=== PATIENT | female | born 1995 | race Asian ===

== ENCOUNTER → 2017-11-20 | Outpatient (CLI) | payer OTHER ==
[~2017-11-20] MED LIST: Z.0.NO CURRENT MEDS
== END ==
LOC: HPND 13:57
PROVIDERS: ATTEND Family Medicine
DX: Z36.3 Encounter for antenatal screening for malformations (principal); O09.32 Supervision of pregnancy with insufficient antenatal care, second trimester
CPT/HCPCS: 76805

== ENCOUNTER 2018-02-28 10:15 | Inpatient (IN) ==
[2018-02-28] MEDS ORDERED: Naloxone Inj 0.4 MG/ML Vial IV.PUSH PRN ×2 (10:57→18:20)
[2018-02-28] MEDS ORDERED: Sod Chloride 0.9% Inj 1,000 ML IV.CONT PRN (10:57)
[2018-02-28] MEDS ORDERED: Sodium Chlor 0.9% Inj 500 ML IV.SIG PRN (10:57)
[2018-02-28] MEDS ORDERED: Oxytocin 30 Units/500ml Premix 30 UNITS/500 ML BAG IV.SIG ONE (10:57)
[2018-02-28] MEDS ORDERED: fentaNYL Citrate Inj 100 MCG/2 ML Ampul IV.PUSH PRN ×2 (10:57)
[2018-02-28] MEDS ORDERED: Oxytocin 30 Units/500ml Premix 30 UNITS/500 ML BAG IV.SIG PRN (10:57)
[2018-02-28] MEDS ORDERED: Citric Acid/Sodium Citrate Liq 30 ML UDC PO SCH (11:00)
--- NOTE | 2018-02-28 11:17 | ED ---
History of Present Illness Primary Care Physician: Mirella Navarro MD History of Present Illness: Ms. Villeda is a at 40/1. Loss of fluid at 930 this am Weeks Gestation:: 40 - Inpatient Certification I certify that the inpatient services were ordered in accordance with Medicare regulations governing the order. This includes certification that hospital inpatient services are reasonable and necessary and in the case of services not specified as inpatient-only under 42 CFR 419.22(n), that they are appropriately provided as inpatient services in accordance to with the 2-midnight benchmark under 43 CFR 412.3(e) Estimated Total Length of Stay (Days): 2 Plans for Post Hospital Care: Home PMFSH - Travel History Recent Travel in the [place] Within the Last 8 Weeks: No Recent Travel Out of the Country Within the Last 8 Weeks: No Medications and Allergies Active Medications: Active Medications Citric Acid/Sodium Citrate (Sodium Citrate/Citric Acid Liq) 30 ml PO BLOCKER HAND [facility] Stop: 03/04/18 10:59 Fentanyl Citrate (Fentanyl Inj) 100 mcg IV.PUSH Q1H PRN PRN Reason: PAIN SCALE 6 TO 10 Fentanyl Citrate (Fentanyl Inj) 50 mcg IV.PUSH Q1H PRN PRN Reason: Pain Scale 3 - 5 Lactated Ringer's (Lr 1000 Ml Inj) 1,000 mls @ 125 mls/hr IV.CONT .Q8H [facility] Lactated Ringer's (Lr 1000 Ml Inj) 1,000 mls @ 3,000 mls/hr IV.SIG UNSCH PRN PRN Reason: compromise or epidural Sodium Chloride (Ns Inj) 500 mls @ 1,000 mls/hr IV.SIG UNSCH PRN PRN Reason: SEE LABEL COMMENTS Sodium Chloride (Ns Inj) 1,000 mls @ 100 mls/hr IV.CONT .Q10H PRN PRN Reason: SEE LABEL COMMENTS Oxytocin (Pitocin 30 Units/Ns 500 Ml Premix) 30 units in 500 mls @ 999 mls/hr IV.SIG BOLUS ONE Stop: 02/28/18 11:27 Oxytocin (Pitocin 30 Units/Ns 500 Ml Premix) 30 units in 500 mls @ 2 mls/hr IV.SIG TITRATE PRN; Protocol PRN Reason: For induction of labor Lidocaine HCl (Xylocaine 1% Inj) 0.1 ml I-DERMAL PRN PRN PRN Reason: For IV start Stop: 03/03/18 10:56 Lidocaine HCl (Xylocaine 1% Inj) 10 ml INFILTRATN PRN PRN PRN Reason: For episiotomy repair Stop: 03/02/18 10:56 Metoclopramide HCl (Reglan Inj) 10 mg IV.PUSH ONCE PRN; Protocol PRN Reason: NAUSEA OR VOMITING Mineral Oil (Muri-Lube Oil) 10 ml TOPICAL PRN PRN PRN Reason: PRN perineal massage Naloxone HCl (Narcan Inj) 0.1 mg IV.PUSH Q2M PRN PRN Reason: for opiate reversal Ondansetron HCl (Zofran Inj) 4 mg IV.PUSH Q6H PRN PRN Reason: NAUSEA OR VOMITING Allergies Allergy/AdvReac Type Severity Reaction Status Date / Time ibuprofen Allergy Severe SOB/HIVES Verified 02/28/18 10:51 Home Medications Medication Instructions Recorded Confirmed Type PNV #[id number] [id number] 1 tab PO DAILY 02/28/18 02/28/18 History ferrous sulfate [Iron (ferrous 325 mg PO DAILY 02/28/18 02/28/18 History sulfate)] Exam Vital signs: Vital Signs 02/28/18 10:32 02/28/18 10:33 Temperature 98.3 F Pulse Rate 71 Respiratory Rate 18 Blood Pressure 139/90 Intake & Output 02/27/18 02/28/18 02/28/18 18:59 06:59 18:59 Weight 81.647 kg Discharge Plan - Discharge Disposition Patient Disposition: 02 Transfer To [facility] [place] - Physicians Team Primary Care Provider: Mirella Navarro Attending Provider: Nguyen Dougherty
--- NOTE | 2018-02-28 11:45 | P.HPOB ---
History of Present Illness: Ms. Villeda is a at 40/1 who presents for contractions. She began to feel contractions a 30 this morning about 30 minutes apart. She had a loss of fluid at 930 this am become pink spotting of vaginal bleeding. Contractions became more frequent about 10 minutes apart. Good movement. Denies chest pain, nausea, vomiting, difficulty breathing, leg pain. She reports no problems during . Her labs have been normal. Weeks Gestation:: 40 - Inpatient Certification I certify that the inpatient services were ordered in accordance with Medicare regulations governing the order. This includes certification that hospital inpatient services are reasonable and necessary and in the case of services not specified as inpatient-only under 42 CFR 419.22(n), that they are appropriately provided as inpatient services in accordance to with the 2-midnight benchmark under 43 CFR 412.3(e) Estimated Total Length of Stay (Days): 2 Plans for Post Hospital Care: Home Review of Systems Constitutional: [Denies] chills, [Denies] fever(s), [Denies] headache(s), [ Denies]weakness, [Denies] fatigue Eyes: [Denies] blurry vision, [Denies] change in vision, [Denies] double vision Cardiovascular: [Denies] lightheadedness, [Denies] chest pain, [Denies] palpitations Respiratory: [Denies] cough, [Denies] shortness of breath Gastrointestinal: [Denies] nausea, [Denies] vomiting, Genitourinary: [Denies] blood in urine, [Denies] painful urination, [Denies] urinary urgency, [Denies] urinary frequency Musculoskeletal: [Denies] back pain, [Denies] body aches, [Denies] joint pains Neurologic: [Denies] numbness, [Denies] tingling, [Denies] dizziness PMFSH - Medical / Surgical Hx Neg / Unobtainable Medical Problems Denied: Yes Surgical History: No Previous Surgery - Tobacco History Tobacco Use In Past 30 Days: No - Alcohol History How Often Do You Have a Drink Containing Alcohol: Never (Not during ) - Substance Use History Substance History: No History of Abuse - Travel History Recent Travel in the [place] Within the Last 8 Weeks: No Recent Travel Out of the Country Within the Last 8 Weeks: No Medications and Allergies Active Medications: Active Medications Citric Acid/Sodium Citrate (Sodium Citrate/Citric Acid Liq) 30 ml PO HOUSEKEEPING MANAGER [facility] Stop: 03/04/18 10:59 Fentanyl Citrate (Fentanyl Inj) 100 mcg IV.PUSH Q1H PRN PRN Reason: PAIN SCALE 6 TO 10 Fentanyl Citrate (Fentanyl Inj) 50 mcg IV.PUSH Q1H PRN PRN Reason: Pain Scale 3 - 5 Lactated Ringer's (Lr 1000 Ml Inj) 1,000 mls @ 125 mls/hr IV.CONT .Q8H [facility] Last Admin: 02/28/18 11:31 Dose: 125 mls/hr Lactated Ringer's (Lr 1000 Ml Inj) 1,000 mls @ 3,000 mls/hr IV.SIG UNSCH PRN PRN Reason: compromise or epidural Sodium Chloride (Ns Inj) 500 mls @ 1,000 mls/hr IV.SIG UNSCH PRN PRN Reason: SEE LABEL COMMENTS Sodium Chloride (Ns Inj) 1,000 mls @ 100 mls/hr IV.CONT .Q10H PRN PRN Reason: SEE LABEL COMMENTS Oxytocin (Pitocin 30 Units/Ns 500 Ml Premix) 30 units in 500 mls @ 2 mls/hr IV.SIG TITRATE PRN; Protocol PRN Reason: For induction of labor Last Admin: 02/28/18 11:31 Dose: 2 milliunit/min, 2 mls/hr Lidocaine HCl (Xylocaine 1% Inj) 0.1 ml I-DERMAL PRN PRN PRN Reason: For IV start Stop: 03/03/18 10:56 Lidocaine HCl (Xylocaine 1% Inj) 10 ml INFILTRATN PRN PRN PRN Reason: For episiotomy repair Stop: 03/02/18 10:56 Metoclopramide HCl (Reglan Inj) 10 mg IV.PUSH ONCE PRN; Protocol PRN Reason: NAUSEA OR VOMITING Mineral Oil (Muri-Lube Oil) 10 ml TOPICAL PRN PRN PRN Reason: PRN perineal massage Naloxone HCl (Narcan Inj) 0.1 mg IV.PUSH Q2M PRN PRN Reason: for opiate reversal Ondansetron HCl (Zofran Inj) 4 mg IV.PUSH Q6H PRN PRN Reason: NAUSEA OR VOMITING Allergies Allergy/AdvReac Type Severity Reaction Status Date / Time ibuprofen Allergy Severe SOB/HIVES Verified 02/28/18 10:51 Home Medications Medication Instructions Recorded Confirmed Type PNV #[id number] [id number] 1 tab PO DAILY 02/28/18 02/28/18 History ferrous sulfate [Iron (ferrous 325 mg PO DAILY 02/28/18 02/28/18 History sulfate)] Exam Vital signs: Vital Signs 02/28/18 10:32 02/28/18 10:33 02/28/18 11:32 Temperature 98.3 F Pulse Rate 71 72 Respiratory Rate 18 18 Blood Pressure 139/90 124/96 H Intake & Output 02/27/18 02/28/18 02/28/18 18:59 06:59 18:59 Weight 81.647 kg Narrative: GENERAL: Well-nourished, well-developed patient. SKIN: Warm and dry. HEAD: Normocephalic and atraumatic. EYES: No scleral icterus. No injection or drainage. ENT: No nasal drainage noted. Mucous membranes pink. Airway patent. NECK: Supple, trachea midline. No JVD. CARDIOVASCULAR: Regular rate and rhythm without murmurs, gallops, or rubs. RESPIRATORY: Breath sounds equal bilaterally. No accessory muscle use. BREASTS: Bilateral exam showed no masses , no retractions, no nipple discharge. ABDOMEN/GI: Abdomen soft, non-tender, bowel sounds present, no rebound, no guarding Gravid GENITOURINARY: Cervical exam performed by Dr. Dougherty Cervix: Dilatation: 2 Effacement: 70 Station: -2 Membranes: Ruptured Uterine Contractions: Regular FHT's: Category: 1 Baseline: 130 Reactive: Yes Variability: Moderate Decels: None EXTREMITIES: No cyanosis or edema. BACK: Nontender without obvious deformity. No CVA tenderness. NEUROLOGICAL: Awake and alert. Motor and sensory grossly within normal limits. Normal speech. Assessment and Plan - Diagnosis (1) 40 weeks gestation of Code(s): Z3A.40 - 40 weeks gestation of Status: Acute - Plan Patient atiya regularly on external tocometer. Admit to labor and delivery CBC UA UDS Expectant management Discharge Plan - Discharge Disposition Patient Disposition: 02 Transfer To [facility] [place] - Physicians Team Primary Care Provider: Mirella Navarro Attending Provider: Nguyen Dougherty
[2018-02-28 11:53] LABS: Baso % (Auto) 0.4 % (0.0-2.0); Eos # (Auto) 0.1 th/mm3 (0.0-0.4); Eos % (Auto) 1.6 % (0.0-4.0); Hematocrit 34.1 % (35.0-46.0); Hemoglobin 11.4 gm/dL (11.6-15.3); Lymph # (Auto) 1.4 th/mm3 (1.0-4.8); Lymph % (Auto) 14.4 % (9.0-44.0); Mean Corpuscular HGB Conc 33.5 % (32.0-36.0); Mean Corpuscular Hemoglobin 29.9 pg (27.0-34.0); Mean Corpuscular Volume 89.4 fL (80.0-100.0); Mean Platelet Volume 10.7 fL (7.0-11.0); Mono # (Auto) 0.9 th/mm3 (0.0-0.9); Mono % (Auto) 9.2 % (0.0-8.0); Neut # (Auto) 7.2 th/mm3 (1.8-7.7); Neut % (Auto) 74.4 % (16.0-70.0); Platelet Count 176 th/mm3 (150-450); Red Blood Count 3.81 mil/mm3 (4.00-5.30); Red Cell Distribution Width 16.8 % (11.6-17.2); White Blood Count 9.6 th/mm3 (4.0-11.0)
[2018-02-28 11:54] LABS: Bilirubin,Urine Negative (Negative); Clarity,Urine Clear (Clear); Color,Urine Yellow (Yellw/Straw); Glucose,Urine (UA) Negative (Negative); Hyaline Casts,Urine 1 /lpf (0-3); Leukocyte Esterase,Urine Negative (Negative); Nitrite,Urine Negative (Negative); Specific Gravity,Urine 1.018 (1.002-1.035); Squamous Epithelial Cell,Urine 2 /hpf (0-5)
[2018-02-28 11:59] LABS: Amphetamine Urine With Conf Neg (Neg); Benzodiazepine Urine With Conf Neg (Neg)
[2018-02-28] MEDS ORDERED: fentaNYL 2MCG-Bupiv 0.125% Epi 150 ML EPIDURAL ONE (12:52)
[2018-02-28] MEDS ORDERED: fentaNYL Citrate Inj 100 MCG/2 ML Ampul EPIDURAL ONE (14:20)
[2018-02-28] MEDS ORDERED: fentaNYL 2MCG-Bupiv 0.125% Epi 150 ML EPIDURAL PRN (14:30)
[2018-02-28] MEDS ORDERED: Diphtheria/Tetanus/Pertussis Vaccine Inj 0.5 ML Syringe IM ONE (16:00)
[2018-02-28] MEDS ORDERED: Measles/Mumps/Rubella Vaccine Inj 0.5 ML Vial SQ ONE (16:00)
[2018-02-28] MEDS ORDERED: Benzocaine 20% Top Spray 60 ML Can TOPICAL PRN (18:20)
[2018-02-28] MEDS ORDERED: Witch Hazel 50%/Glyderin 12.5% 40 Pad Jar RECTAL PRN (18:20)
[2018-02-28] MEDS ORDERED: Acetaminophen 325 MG Tablet PO PRN (18:20)
[2018-02-28] MEDS ORDERED: Zolpidem Tartrate 5 MG Tablet PO PRN (18:20)
[2018-02-28] MEDS ORDERED: Bisacodyl 10 MG Supp RECTAL PRN (18:20)
--- NOTE | 2018-02-28 18:28 | P.OBDELI ---
Weeks Gestation: 40 Patient Started Active Labor: Yes Active Labor Start Date: 02/28/18 Medical Induction of Labor: No Artificial Rupture of Membrane: No (SROM) Anesthesia: Epidural Episiotomy: none Vaginal Delivery: Normal Presentation: Occiput anterior Nuchal Cord: None Delayed Cord Clamping (45 sec): Yes Placenta: Spontaneous delivery Laceration: Vaginal (BL vaginal repaired with 3-0 chromic), Perineal (repaired with 3-0 chromic), 1 deg Repair: Chromic interrupted (BL vaginal lacerations only required one suture), Chromic running (for perineal 1st deg lac) Estimated blood loss (mL): 200 Infant: Male, Single Additional Information: supervised by Dr. Dougherty.
[2018-02-28] MEDS ORDERED: Oxytocin 30 Units/500ml Premix 30 UNITS/500 ML BAG IV.CONT SCH (18:30)
--- NOTE | 2018-03-01 08:09 | P.PNOB ---
Subjective Post day: 1 Interval history: Patient is a 22-year-old delivered at 40 weeks and 1 day. Patient is day 1 after . Patient's pain is well-controlled. Patient reports eating and drinking without any nausea or vomiting. Patient reports minimal bleeding. Patient has passed gas but no bowel movements. Patient is walking without lower extremity pain or shortness of breath. Patient reports desire for contraception and breast-feeding. Objective Vital Signs/I&O: Vital Signs 02/28/18 10:32 02/28/18 10:33 02/28/18 11:32 Temperature 98.3 F Pulse Rate 71 72 Respiratory Rate 18 18 Blood Pressure 139/90 124/96 H 02/28/18 12:02 02/28/18 12:39 02/28/18 13:10 Temperature Pulse Rate 65 69 83 Respiratory Rate Blood Pressure 131/82 135/88 125/87 02/28/18 13:16 02/28/18 13:20 02/28/18 13:26 Temperature Pulse Rate 72 72 71 Respiratory Rate Blood Pressure 134/82 130/75 143/98 H 02/28/18 13:50 02/28/18 13:55 02/28/18 14:20 Temperature 98.1 F Pulse Rate 69 69 64 Respiratory Rate 16 Blood Pressure 127/85 134/78 02/28/18 14:40 02/28/18 15:00 02/28/18 15:10 Temperature 98.5 F Pulse Rate 73 88 83 Respiratory Rate 20 Blood Pressure 117/83 116/74 110/67 02/28/18 15:15 02/28/18 15:25 02/28/18 15:40 Temperature Pulse Rate 72 74 72 Respiratory Rate Blood Pressure 125/78 127/80 02/28/18 15:50 02/28/18 16:00 02/28/18 16:10 Temperature 98.0 F Pulse Rate 74 78 81 Respiratory Rate 18 Blood Pressure 124/86 134/95 H 02/28/18 16:25 02/28/18 16:30 02/28/18 16:40 Temperature Pulse Rate 81 79 79 Respiratory Rate Blood Pressure 132/86 129/83 02/28/18 17:00 02/28/18 17:04 02/28/18 18:24 Temperature 98.3 F Pulse Rate 81 80 79 Respiratory Rate 20 Blood Pressure 139/93 H 130/78 125/83 02/28/18 18:32 02/28/18 18:45 02/28/18 19:01 Temperature 98.3 F Pulse Rate 79 79 83 Respiratory Rate 20 18 Blood Pressure 128/80 132/81 132/81 02/28/18 19:15 02/28/18 19:30 02/28/18 19:45 Temperature Pulse Rate 80 78 74 Respiratory Rate Blood Pressure 132/80 135/81 123/86 02/28/18 21:15 Temperature 98.7 F Pulse Rate 90 Respiratory Rate 18 Blood Pressure 135/76 Intake & Output 02/28/18 03/01/18 03/01/18 18:59 06:59 18:59 Intake Total 1000 / 1000 Balance 1000 / 1000 Weight 81.647 kg Intake: IV 1000 / 1000 LR 1000 mL Inj 1,000 ML @ 125 1000 / 1000 mls/hr IV.CONT .Q8H [facility] Rx#: [id number] Result Diagrams: 02/28/18 11:00 Objective Remarks: GENERAL: Well-nourished, well-developed patient. CARDIOVASCULAR: Regular rate and rhythm without murmurs, gallops, or rubs. RESPIRATORY: Breath sounds equal bilaterally. No accessory muscle use. ABDOMEN/GI: Abdomen soft, non-tender. Fundus: Firm, non-tender at umbilicus. GENITOURINARY: Light to moderate bleeding. EXTREMITIES: No cyanosis or edema, non-tender, without signs of DVT. Medications and IVs: Active Medications Acetaminophen (Tylenol) 650 mg PO Q4H PRN PRN Reason: PAIN SCALE 1 TO 2 Al Hydroxide/Mg Hydroxide (Milk Of Magnesia Liq) 30 ml PO Q12H PRN PRN Reason: Mild Constipation Benzocaine (Americaine 20% Top [place]) 1 spray TOPICAL Q4H PRN PRN Reason: For Perineum Discomfort Bisacodyl (Dulcolax Supp) 10 mg RECTAL DAILY PRN PRN Reason: SEVERE CONSITIPATION Citric Acid/Sodium Citrate (Sodium Citrate/Citric Acid Liq) 30 ml PO OBSTETRICS SPECIALIST [facility] Stop: 03/04/18 10:59 Ephedrine Sulfate (Ephedrine/Ns Syringe) 10 mg IV.PUSH UNSCH PRN PRN Reason: SEE LABEL COMMENTS Stop: 03/01/18 14:21 Fentanyl Citrate (Fentanyl Inj) 100 mcg IV.PUSH Q1H PRN PRN Reason: PAIN SCALE 6 TO 10 Fentanyl Citrate (Fentanyl Inj) 50 mcg IV.PUSH Q1H PRN PRN Reason: Pain Scale 3 - 5 Lactated Ringer's (Lr 1000 Ml Inj) 1,000 mls @ 125 mls/hr IV.CONT .Q8H [facility] Last Admin: 02/28/18 13:55 Dose: 125 mls/hr Lactated Ringer's (Lr 1000 Ml Inj) 1,000 mls @ 3,000 mls/hr IV.SIG UNSCH PRN PRN Reason: compromise or epidural Sodium Chloride (Ns Inj) 500 mls @ 1,000 mls/hr IV.SIG UNSCH PRN PRN Reason: SEE LABEL COMMENTS Sodium Chloride (Ns Inj) 1,000 mls @ 100 mls/hr IV.CONT .Q10H PRN PRN Reason: SEE LABEL COMMENTS Oxytocin (Pitocin 30 Units/Ns 500 Ml Premix) 30 units in 500 mls @ 2 mls/hr IV.SIG TITRATE PRN; Protocol PRN Reason: For induction of labor Last Admin: 02/28/18 11:31 Dose: 2 milliunit/min, 2 mls/hr Fentanyl/Bupivacaine/Sodium Chlor (Fentanyl 2 Mcg-Bupiv 0.125% Epi) 150 mls @ 12 mls/hr EPIDURAL UNSCH PRN PRN Reason: for Labor Pain Lactulose (Lactulose Liq) 30 ml PO DAILY PRN PRN Reason: SEVERE CONSITIPATION Lidocaine HCl (Xylocaine 1% Inj) 0.1 ml I-DERMAL PRN PRN PRN Reason: For IV start Stop: 03/03/18 10:56 Lidocaine HCl (Xylocaine 1% Inj) 10 ml INFILTRATN PRN PRN PRN Reason: For episiotomy repair Stop: 03/02/18 10:56 Metoclopramide HCl (Reglan Inj) 10 mg IV.PUSH ONCE PRN; Protocol PRN Reason: NAUSEA OR VOMITING Mineral Oil (Muri-Lube Oil) 10 ml TOPICAL PRN PRN PRN Reason: PRN perineal massage Miscellaneous Information (Misc Information) 1 each OTHER UNSCH PRN PRN Reason: SEE LABEL COMMENTS Stop: 03/01/18 14:21 Miscellaneous Information (Misc Information) 1 each OTHER UNSCH PRN PRN Reason: SEE LABEL COMMENTS Stop: 03/01/18 14:21 Naloxone HCl (Narcan Inj) 0.1 mg IV.PUSH Q2M PRN PRN Reason: for opiate reversal Naloxone HCl (Narcan Inj) 0.1 mg IV.PUSH Q2M PRN PRN Reason: for opiate reversal Ondansetron HCl (Zofran Inj) 4 mg IV.PUSH Q6H PRN PRN Reason: NAUSEA OR VOMITING Ondansetron HCl (Zofran Odt) 4 mg PO Q6H PRN PRN Reason: NAUSEA OR VOMITING Oxycodone/Acetaminophen (Percocet 5/325 Mg) 1 tab PO Q4H PRN PRN Reason: PAIN SCALE 3 TO 5 Oxycodone/Acetaminophen (Percocet 5/325 Mg) 2 tab PO Q4H PRN PRN Reason: PAIN SCALE 6 TO 10 Vit/Calcium/Iron/Folic Ac (Stuartnatal Plus 3) 1 tab PO DAILY [facility] Senna/Docusate Sodium (Sarah-Colace) 1 tab PO BID [facility] Sennosides (Senokot) 17.2 mg PO Q12H PRN PRN Reason: Moderate Constipation Sodium Chloride (Ns Flush) 2 ml IV.FLUSH BID [facility] Sodium Chloride (Ns Flush) 2 ml IV.FLUSH PRN PRN PRN Reason: FLUSH AFTER USING IV ACCESS Witch Lisa/Glycerin (Tucks Pads) 1 applicatio RECTAL QID PRN PRN Reason: HEMORRHOIDS Zolpidem Tartrate (Ambien) 5 mg PO HS PRN PRN Reason: SLEEP Assessment and Plan - Plan Patie continue with your doctor nt is a 22-year-old delivered at 40 weeks and 1 day. Patient is day 1 after . Patient was counseled to do 6 weeks of pelvic rest. Patient was counseled to follow up in 6 weeks. Patient requested follow-up and contraception. --AF VSS --Continue routine care --Tylenol (ibuprofen allergy) and Percocet when necessary for pain --Encourage OOB --Pelvic rest for 6 weeks and will need follow-up appointment at that time. --Contraception: will discuss --Anticipate discharge tomorrow - Attending Attestation The exam, history, and the medical decision-making described in the above note were completed with the assistance of the resident physician. I reviewed and agree with the findings presented. I attest that I had a [id number] encounter with the patient on the same day.
[2018-03-01] MEDS ORDERED: PNV IRON FOLIC ACID OMEGA3 PO SCH (09:00)
[2018-03-01] MEDS: Prenatal Vit/Ca/Iron/Folic Acid Tablet PO SCH (09:14)
[2018-03-01] MEDS: Senna/Docusate Sodium 8.6/50 MG Tablet PO SCH (09:14)
--- NOTE | 2018-03-02 07:22 | P.PNOB ---
Subjective Interval history: Patient is a 22-year-old delivered at 40 weeks and 1 days. Patient is day 2 after . Patient's pain is well-controlled. Patient reports eating and drinking without any nausea or vomiting. Patient reports minimal bleeding. Patient has passed gas but no bowel movements. Patient is walking without lower extremity pain or shortness of breath. Patient reports desire for contraception and breast-feeding. Objective Vital Signs/I&O: Vital Signs 03/01/18 08:50 03/01/18 20:05 Temperature 98.2 F 99.1 F Pulse Rate 82 87 Respiratory Rate 14 18 Blood Pressure 140/87 141/86 H Result Diagrams: 02/28/18 11:00 Objective Remarks: GENERAL: Well-nourished, well-developed patient. CARDIOVASCULAR: Regular rate and rhythm without murmurs, gallops, or rubs. RESPIRATORY: Breath sounds equal bilaterally. No accessory muscle use. ABDOMEN/GI: Abdomen soft, non-tender. Fundus: Firm, non-tender at umbilicus. GENITOURINARY: Light to moderate bleeding. EXTREMITIES: No cyanosis or edema, non-tender, without signs of DVT. Medications and IVs: Active Medications Acetaminophen (Tylenol) 650 mg PO Q4H PRN PRN Reason: PAIN SCALE 1 TO 2 Al Hydroxide/Mg Hydroxide (Milk Of Magnesia Liq) 30 ml PO Q12H PRN PRN Reason: Mild Constipation Benzocaine (Americaine 20% Top [place]) 1 spray TOPICAL Q4H PRN PRN Reason: For Perineum Discomfort Last Admin: 03/01/18 09:15 Dose: 1 spray Bisacodyl (Dulcolax Supp) 10 mg RECTAL DAILY PRN PRN Reason: SEVERE CONSITIPATION Citric Acid/Sodium Citrate (Sodium Citrate/Citric Acid Liq) 30 ml PO USED CAR SALES MANAGER [facility] Stop: 03/04/18 10:59 Fentanyl Citrate (Fentanyl Inj) 100 mcg IV.PUSH Q1H PRN PRN Reason: PAIN SCALE 6 TO 10 Fentanyl Citrate (Fentanyl Inj) 50 mcg IV.PUSH Q1H PRN PRN Reason: Pain Scale 3 - 5 Lactated Ringer's (Lr 1000 Ml Inj) 1,000 mls @ 125 mls/hr IV.CONT .Q8H [facility] Last Admin: 02/28/18 13:55 Dose: 125 mls/hr Lactated Ringer's (Lr 1000 Ml Inj) 1,000 mls @ 3,000 mls/hr IV.SIG UNSCH PRN PRN Reason: compromise or epidural Sodium Chloride (Ns Inj) 500 mls @ 1,000 mls/hr IV.SIG UNSCH PRN PRN Reason: SEE LABEL COMMENTS Sodium Chloride (Ns Inj) 1,000 mls @ 100 mls/hr IV.CONT .Q10H PRN PRN Reason: SEE LABEL COMMENTS Oxytocin (Pitocin 30 Units/Ns 500 Ml Premix) 30 units in 500 mls @ 2 mls/hr IV.SIG TITRATE PRN; Protocol PRN Reason: For induction of labor Last Admin: 02/28/18 11:31 Dose: 2 milliunit/min, 2 mls/hr Fentanyl/Bupivacaine/Sodium Chlor (Fentanyl 2 Mcg-Bupiv 0.125% Epi) 150 mls @ 12 mls/hr EPIDURAL UNSCH PRN PRN Reason: for Labor Pain Lactulose (Lactulose Liq) 30 ml PO DAILY PRN PRN Reason: SEVERE CONSITIPATION Lidocaine HCl (Xylocaine 1% Inj) 0.1 ml I-DERMAL PRN PRN PRN Reason: For IV start Stop: 03/03/18 10:56 Lidocaine HCl (Xylocaine 1% Inj) 10 ml INFILTRATN PRN PRN PRN Reason: For episiotomy repair Stop: 03/02/18 10:56 Metoclopramide HCl (Reglan Inj) 10 mg IV.PUSH ONCE PRN; Protocol PRN Reason: NAUSEA OR VOMITING Mineral Oil (Muri-Lube Oil) 10 ml TOPICAL PRN PRN PRN Reason: PRN perineal massage Naloxone HCl (Narcan Inj) 0.1 mg IV.PUSH Q2M PRN PRN Reason: for opiate reversal Naloxone HCl (Narcan Inj) 0.1 mg IV.PUSH Q2M PRN PRN Reason: for opiate reversal Ondansetron HCl (Zofran Inj) 4 mg IV.PUSH Q6H PRN PRN Reason: NAUSEA OR VOMITING Ondansetron HCl (Zofran Odt) 4 mg PO Q6H PRN PRN Reason: NAUSEA OR VOMITING Oxycodone/Acetaminophen (Percocet 5/325 Mg) 1 tab PO Q4H PRN PRN Reason: PAIN SCALE 3 TO 5 Oxycodone/Acetaminophen (Percocet 5/325 Mg) 2 tab PO Q4H PRN PRN Reason: PAIN SCALE 6 TO 10 Vit/Calcium/Iron/Folic Ac (Stuartnatal Plus 3) 1 tab PO DAILY [facility] Last Admin: 03/01/18 09:14 Dose: 1 tab Senna/Docusate Sodium (Sarah-Colace) 1 tab PO BID [facility] Last Admin: 03/01/18 09:14 Dose: 1 tab Sennosides (Senokot) 17.2 mg PO Q12H PRN PRN Reason: Moderate Constipation Sodium Chloride (Ns Flush) 2 ml IV.FLUSH BID [facility] Sodium Chloride (Ns Flush) 2 ml IV.FLUSH PRN PRN PRN Reason: FLUSH AFTER USING IV ACCESS Witch Lisa/Glycerin (Tucks Pads) 1 applicatio RECTAL QID PRN PRN Reason: HEMORRHOIDS Last Admin: 03/01/18 09:14 Dose: 1 applicatio Zolpidem Tartrate (Ambien) 5 mg PO HS PRN PRN Reason: SLEEP Assessment and Plan - Diagnosis (1) 40 weeks gestation of Code(s): Z3A.40 - 40 weeks gestation of Status: Acute - Plan Patie continue with your doctor nt is a 22-year-old delivered at 40 weeks and 1 day. Patient is day 2 after . Patient was counseled to do 6 weeks of pelvic rest. Patient was counseled to follow up in 6 weeks. Patient requested follow-up and contraception. --AF VSS --Continue routine care --Tylenol (ibuprofen allergy) when necessary for pain --Encourage OOB --Pelvic rest for 6 weeks and will need follow-up appointment at that time. --Contraception: will discuss as an outpatient --Anticipate discharge today
[2018-03-02] MEDS: Senna/Docusate Sodium 8.6/50 MG Tablet PO SCH (08:03)
[2018-03-02] MEDS: Prenatal Vit/Ca/Iron/Folic Acid Tablet PO SCH (08:56)
== END 2018-03-02 13:00 | disposition home or self-care (01) ==
LOC: HOBED 10:15 → H2E 10:57 → H1EA 21:02
PROVIDERS: ADMIT Obstetrics & Gynecology; ATTEND Obstetrics & Gynecology
DX: O71.4 Obstetric high vaginal laceration alone; Z37.0 Single live birth; Z3A.40 40 weeks gestation of pregnancy; O70.0 First degree perineal laceration during delivery